=== PATIENT | female | born 1955 | race Caucasian/White ===

== ENCOUNTER → 2020-09-17 | Day surgery (SDC) | payer OTHER ==
[~2020-09-17] VITALS: Ht 157.5 cm; Wt 72.6 kg
[~2020-09-17] MED LIST: ASPIRIN81 MG PO; ATORVASTATIN CA80 MG PO; BENADRYL25 MG PO; CHANTIX1 MG PO; GABAPENTIN300 MG PO; IMIQUIMOD1 EACH TOP; LASIX20 MG PO; MELATONIN5 M2 PO; METOPROLOL SUCC25 MG PO; NITROGLYCERIN0.4 MG SL; PAROXETINE HCL40 MG PO; PERCOCET 5-3251 EACH PO; VITAMIN D21250 MCG PO; ZOLPIDEM TART12.5 MG PO
== END | disposition home or self-care (01) ==
LOC: FAS 09:28
DX: Z12.11 Encounter for screening for malignant neoplasm of colon (principal); D12.4 Benign neoplasm of descending colon; C50.912 Malignant neoplasm of unspecified site of left female breast; F32.9 Major depressive disorder, single episode, unspecified; F17.200 Nicotine dependence, unspecified, uncomplicated; Z79.82 Long term (current) use of aspirin; Z79.899 Other long term (current) drug therapy; Z90.49 Acquired absence of other specified parts of digestive tract; Z90.710 Acquired absence of both cervix and uterus; Z86.74 Personal history of sudden cardiac arrest
CPT/HCPCS: 88305; J2250; J2704; J7120

== ENCOUNTER → 2020-10-09 | Day surgery (SDC) | payer OTHER ==
[~2020-10-09] VITALS: Ht 157.5 cm; Wt 72.6 kg
[2020-10-09 09:42] LABS: BUN/CREAT RATIO (CALC) 24.7 RATIO; CREATININE 0.81 mg/dL (0.51-0.95); POTASSIUM 4.2 mmol/L (3.5-5.1)
== END | disposition home or self-care (01) ==
LOC: FAS 08:44
PROVIDERS: Anesthesiology
DX: C50.912 Malignant neoplasm of unspecified site of left female breast (principal); D05.11 Intraductal carcinoma in situ of right breast; D24.1 Benign neoplasm of right breast; I25.2 Old myocardial infarction; I11.9 Hypertensive heart disease without heart failure; F32.9 Major depressive disorder, single episode, unspecified; E78.5 Hyperlipidemia, unspecified; J43.9 Emphysema, unspecified; K21.9 Gastro-esophageal reflux disease without esophagitis; F17.290 Nicotine dependence, other tobacco product, uncomplicated; Z17.0 Estrogen receptor positive status [ER+]; Z95.5 Presence of coronary angioplasty implant and graft; Z79.82 Long term (current) use of aspirin; Z79.899 Other long term (current) drug therapy
CPT/HCPCS: 36415; 76098; 77066; 80048; 93005; A9541; J1100; J2250; J2405; J2704; J3010; J7120

== ENCOUNTER → 2020-10-22 | Day surgery (SDC) | payer OTHER ==
[~2020-10-22] VITALS: Ht 157.5 cm; Wt 72.6 kg
== END | disposition home or self-care (01) ==
LOC: FAS 09:18
DX: D05.11 Intraductal carcinoma in situ of right breast (principal); C50.812 Malignant neoplasm of overlapping sites of left female breast; I10 Essential (primary) hypertension; I99.9 Unspecified disorder of circulatory system; I25.2 Old myocardial infarction; E78.00 Pure hypercholesterolemia, unspecified; J43.9 Emphysema, unspecified; K21.9 Gastro-esophageal reflux disease without esophagitis; F17.200 Nicotine dependence, unspecified, uncomplicated; Z80.3 Family history of malignant neoplasm of breast; Z95.818 Presence of other cardiac implants and grafts; Z79.82 Long term (current) use of aspirin; Z79.891 Long term (current) use of opiate analgesic; Z79.899 Other long term (current) drug therapy
CPT/HCPCS: J1100; J1170; J2250; J2405; J2704; J3010; J7120